=== PATIENT | female | born 1990 | race Two or more races ===

== ENCOUNTER 2023-02-02 23:22 | Emergency (ER) | payer BC ==
[~2023-02-02] VITALS: Ht 149.9 cm; Wt 53.5 kg
[2023-02-03] MEDS ORDERED: VALTREX1000 MG PO (01:24)
[2023-02-03] MEDS ORDERED: ORASEP SPRAY30 ML MM (01:24)
== END 2023-02-03 01:37 ==
LOC: ER 23:22
DX: K00.6 Disturbances in tooth eruption (principal)